=== PATIENT | male | born 1995 | race Caucasian/White ===

== ENCOUNTER 2016-12-10 11:05 | Emergency (ER) | payer OTHER ==
[~2016-12-10] VITALS: Ht 185.4 cm; Wt 66.0 kg
[~2016-12-10 11:05] MED LIST: ACET500C5 PO; ACET500T98 PO; IBUP-1542 PO; IBUP400T22 PO; UDROBDM PO
[2016-12-10 11:09] VITALS: Ht 185.4 cm; Wt 66.0 kg
--- NOTE | 2016-12-10 12:08 | ERD ---
ER Documentation Chief Complaint Date/Time DATE: 12/10/16 TIME: 11:59 Chief Complaint COUGH, MEDIAL CP, SORE THROAT SINCE LAST TUESDAY. COUGHED UP BLOOD THIS AM. HPI Pleasant 21-year-old male patient presents to emergency department today with complaint of nasal congestion, sore throat, cough, and blood-tinged mucus. Patient reports that symptoms started 7 days ago, and he feels worse now than he did at the onset of symptoms. Patient reports maxillary frontal sinus tenderness, ear congestion and popping, intermittent headache, sore throat with intermittent tactile fevers and chills. Patient has tried etdb-tos-ifcdkkl cold and flu medication with temporary relief of symptoms, patient reports that ijgi-czv-ejetctj medication is no longer working. 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 Denies chest pain, shortness of breath, neck pain, or dizziness. Patient reports history of back pain treated with medical marijuana. Patient reports smoking, denies cigarettes. ROS All systems reviewed and are negative except as per history of present illness. Medications Home Meds Active Scripts Guaifenesin-Dextromethorphan* (Robitussin* DM) 100MG/10MG/5ML Syrup, 5 ML PO Q6H Y for COUGH, #120 ML 0 Refills Prov:ANITA COLBY PA-C 01/29/16 Ibuprofen* (Motrin*) 400 Mg Tab, 400 MG PO Q6, #30 TAB 0 Refills Prov:ANITA COLBY PA-C 01/29/16 Acetaminophen* (Tylophen*) 500 Mg Capsule, 1 CAP PO Q6H Y for PAIN AND OR ELEVATED TEMP, #30 CAP 0 Refills Prov:ANITA COLBY PA-C 01/29/16 Guaifenesin-Dextromethorphan* (Robitussin* DM) 100MG/10MG/5ML Syrup, 5 ML PO Q6H Y for COUGH, #240 ML 0 Refills Prov:ANITA COLBY PA-C 11/17/15 Ibuprofen* (Motrin*) 600 Mg Tab, 600 MG PO BID, #30 TAB 0 Refills Prov:ANITA COLBY PA-C 11/17/15 Acetaminophen (Tylenol) 500 Mg Tab, 500 MG PO Q6, #30 TAB 0 Refills Prov:ANITA COLBY PA-C 11/17/15 Allergies Allergies: Coded Allergies: No Known Allergy (Unverified , 10/29/14) PMhx/Soc Medical and Surgical Hx: pt denies Medical Hx, pt denies Surgical Hx History of Surgery: No Anesthesia Reaction: No Hx Neurological Disorder: No Hx Respiratory Disorders: No Hx Cardiac Disorders: No Hx Psychiatric Problems: No Hx Miscellaneous Medical Probl: No Hx Alcohol Use: Yes (OOC) Hx Substance Use: No Hx Tobacco Use: Yes (4 cig a day) Smoking Status: Current every day smoker Physical Exam Vitals Vital Signs Date Time Temp Pulse Resp B/P Pulse Ox O2 Delivery O2 Flow Rate FiO2 12/10/16 11:09 98.4 82 16 135/87 98 Vitals stable, nursing notes reviewed Physical Exam Const: No acute distress, patient sitting with facial mass, intermittently coughing, speech is clear. Head: Eyes: Conjunctiva clear, noninjected, no jaundice, or pallor ENT: Bilateral tympanic membranes are erythemic and nonbulging, auditory canals are clear, nasal mucosa is dry, terminates +2, nasal septum midline with out bleeding points, positive maxillary frontal sinus tenderness to palpation, pharynx mildly erythematous, tonsils not visualized, uvula rises and falls with pronation Neck: Full range of motion..~ No meningismus. No cervical chain nodes Resp: Clear to auscultation bilaterally, no rales wheezes or rhonchi Cardio: Regular rate and rhythm, no murmurs Abd: Soft, non tender, non distended. Normal bowel sounds Skin: Back: Ext: Neur: Awake and alert Psych: Normal Mood and Affect Procedures/MDM Pleasant 21-year-old male patient presents today with worsening of cold symptoms over the last 7 days. Patient has tried byok-txn-hotvrgk cold and flu medication with temporary relief of symptoms. Patient now reports that he is coughing up blood-tinged sputum, headache is intermittent maxillary sinuses, intermittent tactile fever, without nausea or vomiting. Patient denies night sweats, unintentional weight loss, or hemoptysis. Tuberculosis is unlikely. Findings are consistent with sinus infection. I feel the patient is stable for discharge at this time. And will benefit from outpatient antibiotic treatment with albuterol MDI. I have discussed results, examination findings, the treatment plan with the patient prior to discharge, smoking cessation discussed , indications for emergent reevaluation include shortness of breath, hemoptysis , feeling worse than he does now in 48 hours., Headache, side effects of medication were also discussed. All questions were answered. Patient verbalizes understanding and agrees with plan of care. Departure Condition: BLAISE Dubon Dec 10, 2016 12:08
[2016-12-10] MEDS ORDERED: AMOX1TAB10 PO (12:09)
[2016-12-10] MEDS ORDERED: ALBU18HF INHALATION (12:10)
[2016-12-10 12:20] VITALS: BP 125/55; PULSE 55; RESP 20; TEMP 98
== END 2016-12-10 12:22 | disposition home or self-care (01) ==
LOC: FTE 11:05
DX: R05 Cough (principal); R09.81 Nasal congestion; J02.9 Acute pharyngitis, unspecified; R51 Headache; R50.9 Fever, unspecified; F17.210 Nicotine dependence, cigarettes, uncomplicated
CPT/HCPCS: 99284

== ENCOUNTER 2017-02-05 12:08 | Emergency (ER) | payer OTHER ==
[~2017-02-05] VITALS: Wt 68.5 kg
[~2017-02-05 12:08] MED LIST changes: +ALBU18HF INHALATION; +AMOX1TAB10 PO
[2017-02-05] MEDS ORDERED: DIPHENHYDRAMINE 25 MG CAP PO ONE (13:00)
[2017-02-05] MEDS ORDERED: DEXAMETHASONE 10 MG/ML 1 ML INJ IM ONE (13:00)
[2017-02-05] MEDS ORDERED: BEN25 PO (13:10)
[2017-02-05] MEDS ORDERED: EPIN0.3P4 INJ (13:10)
[2017-02-05 13:26] VITALS: PULSE 66; RESP 18
--- NOTE | 2017-02-05 15:56 | ERD ---
ER Documentation Chief Complaint Date/Time DATE: 02/05/17 TIME: 15:51 Chief Complaint SWELLING OF UPPER LIP SINCE THIS MORNING HPI 21-year-old male patient with no significant past medical history presents to the ED complaining of an upper lip swelling that started after drinking [place] orange juice earlier today. States that he was drinking it out of the gallon. Denies any fever, chills, abdominal pain, shortness of breath, wheezing, rashes. Denies taking any ATUL inhibitors. Denies eating any new foods or taking any new meds. Denies any exposure to pets or insects. Denies any new use of soaps or detergents or lotions. ROS All systems reviewed and are negative except as per history of present illness. Medications Home Meds Active Scripts Diphenhydramine Hcl* (Benadryl*) 25 Mg Cap, 25 MG PO Q6, #30 CAP Prov:SOBIA SANCHEZ PA-C 02/05/17 Epinephrine (Epipen 2-Nathanael) 0.3 Mg/0.3 Ml Pen.injctr, 1 EA INJ ONCE Y for ALLERGIC REACTION, #1 EA Prov:SOBIA SANCHEZ PA-C 02/05/17 Albuterol Sulfate* (Ventolin HFA*) 18 Gm Hfa.aer.ad, 2 PUFF INHALATION Q4H, #1 INHALER Prov:DEVEN,BLAISE 12/10/16 Amoxicillin/Potassium Clav (Amox-Clav 875-125 mg Tablet) 875-125 mg Tab, 1 TAB PO BID for 10 Days, #20 TAB Prov:DEVENBLAISE 12/10/16 Guaifenesin-Dextromethorphan* (Robitussin* DM) 100MG/10MG/5ML Syrup, 5 ML PO Q6H Y for COUGH, #120 ML 0 Refills Prov:ANITA COLBY PA-C 01/29/16 Ibuprofen* (Motrin*) 400 Mg Tab, 400 MG PO Q6, #30 TAB 0 Refills Prov:ANITA COLBY PA-C 01/29/16 Acetaminophen* (Tylophen*) 500 Mg Capsule, 1 CAP PO Q6H Y for PAIN AND OR ELEVATED TEMP, #30 CAP 0 Refills Prov:ANITA COLBY PA-C 01/29/16 Guaifenesin-Dextromethorphan* (Robitussin* DM) 100MG/10MG/5ML Syrup, 5 ML PO Q6H Y for COUGH, #240 ML 0 Refills Prov:ANITA COLBY FABI 11/17/15 Ibuprofen* (Motrin*) 600 Mg Tab, 600 MG PO BID, #30 TAB 0 Refills Prov:ANITA COLBY FABI 11/17/15 Acetaminophen (Tylenol) 500 Mg Tab, 500 MG PO Q6, #30 TAB 0 Refills Prov:ANITA COLBY FABI 11/17/15 Allergies Allergies: Coded Allergies: No Known Allergy (Unverified , 10/29/14) PMhx/Soc Medical and Surgical Hx: pt denies Medical Hx, pt denies Surgical Hx History of Surgery: No Anesthesia Reaction: No Hx Neurological Disorder: No Hx Respiratory Disorders: No Hx Cardiac Disorders: No Hx Psychiatric Problems: No Hx Miscellaneous Medical Probl: No Hx Alcohol Use: Yes (OOC) Hx Substance Use: No Hx Tobacco Use: Yes (4 cig a day) Smoking Status: Current every day smoker Physical Exam Vitals Vital Signs Date Time Temp Pulse Resp B/P Pulse Ox O2 Delivery O2 Flow Rate FiO2 02/05/17 13:26 66 18 99 Room Air 02/05/17 12:09 97.5 79 18 111/71 99 Physical Exam Const: Xwl-orv-bvojnxuuy, well-nourished. In no acute distress. Head: Atraumatic, normocephalic Eyes: Normal Conjunctiva without injection. No purulent discharge. PERRL. EOMI ENT: Normal external ear. Ear canal without erythema. Tympanic membrane pearly ritter without effusion or bulging. Nasal canal clear with normal turbinates. Moist oropharynx without tonsillar exudates. Non-erythematous pharynx. Uvula midline. No drooling. No trismus. Upper lip angioedema noted. With no surrounding erythema or edema. No fluctuance. Neck: Full range of motion. No meningismus. No cervical lymphadenopathy. Resp: Clear to auscultation bilaterally. No wheezing, rhonchi, rales, or crackles. No accessory muscle use. No retractions. Cardio: Regular rate and rhythm. No murmurs, rubs or gallops. Abd: Soft, non tender, non distended. Normal bowel sounds. No palpable masses. No rebound tenderness. No guarding. Skin: No petechiae or rashes Back: No midline tenderness. No CVA tenderness. Ext: No cyanosis, or edema. Neur: Awake and alert. Psych: Normal Mood and Affect Results 24 hrs Current Medications Medications (Trade) Dose Ordered Sig/Malina Route PRN Reason Start Time Stop Time Status Last Admin Dose Admin Diphenhydramine HCl (Benadryl) 25 mg ONCE ONCE PO 02/05/17 13:00 02/05/17 13:01 DC 02/05/17 12:54 Dexamethasone (Decadron) 10 mg ONCE ONCE IM 02/05/17 13:00 02/05/17 13:01 DC 02/05/17 12:54 Procedures/MDM This is a 21-year-old male patient with no significant past medical history presents to the ED complaining of upper lip swelling that started this morning. Patient is afebrile and nontoxic-appearing. Patient is speaking in full sentences. Patient is not in respiratory distress. Angioedema is localized. This is likely secondary to an allergic reaction possibly due to [place] orange juice. Patient was strictly instructed to avoid drinking [place] orange juice. He was also instructed to follow-up with his primary care physician for further allergy testing. Patient was given Decadron and Benadryl here in the ED with improvement. There is low suspicion for anaphylaxis, pneumothorax, pleural effusion, pneumonia, cardiopulmonary diseases. Low suspicion for scabies , SJS/TEN, erythema multiforme, sepsis, cellulitis, necrotizing fascitis, gangrene, meningococcemia or other emergent conditions. This case was discussed with my supervising physician Dr. Muse who agreed with the management and discharge plan. Discharge medications: Benadryl, EpiPen Follow up with primary care physician in 1-2 days. Instructed patient to return to the ED sooner for any worsening symptoms. Patient's questions were answered. Patient understood and agreed with discharge plan. Patient discharged stable. Departure Diagnosis: Primary Impression: Lip swelling Condition: Stable Patient Instructions: Allergic Reaction, Other (General), Angioedema Referrals: COMM[facility]ITY CLINICS YOU HAVE RECEIVED A MEDICAL SCREENING EXAM AND THE RESULTS INDICATE THAT YOU DO NOT HAVE A CONDITION THAT REQUIRES URGENT TREATMENT IN THE EMERGENCY DEPARTMENT. FURTHER EVALUATION AND TREATMENT OF YOUR CONDITION CAN WAIT UNTIL YOU ARE SEEN IN YOUR DOCTORS OFFICE WITHIN THE NEXT 1-2 DAYS. IT IS YOUR RESPONSIBILITY TO MAKE AN APPOINTMENT FOR MICHAEL-UP CARE. IF YOU HAVE A PRIMARY DOCTOR --you should call your primary doctor and schedule an appointment IF YOU DO NOT HAVE A PRIMARY DOCTOR YOU CAN CALL OUR PHYSICIAN REFERRAL HOTLINE AT IF YOU CAN NOT AFFORD TO SEE A PHYSICIAN YOU CAN CHOSE FROM THE FOLLOWING [facility] [address] [facility] [address] [facility] [address] [facility] [address] [facility] [address] [facility]. [facility] [address] [facility]. [facility] YOU HAVE RECEIVED A MEDICAL SCREENING EXAM AND THE RESULTS INDICATE THAT YOU DO NOT HAVE A CONDITION THAT REQUIRES URGENT TREATMENT IN THE EMERGENCY DEPARTMENT. FURTHER EVALUATION AND TREATMENT OF YOUR CONDITION CAN WAIT UNTIL YOU ARE SEEN IN YOUR DOCTORS OFFICE WITHIN THE NEXT 1-2 DAYS. IT IS YOUR RESPONSIBILITY TO MAKE AN APPOINTMENT FOR FOLOW-UP CARE. IF YOU HAVE A PRIMARY DOCTOR --you should call your primary doctor and schedule and appointment IF YOU DO NOT HAVE A PRIMARY DOCTOR YOU CAN CALL OUR PHYSICIAN REFERRAL HOTLINE AT . IF YOU CAN NOT AFFORD TO SEE A PHYSICIAN YOU CAN CHOSE FROM THE FOLLOWING [facility] INSTITUTIONS: [facility] [address] [place] [address] [facility] [address] [place] [address] [facility] + [facility] [address] [place] [address] [facility] Additional Instructions: Call your primary care doctor TOMORROW for an appointment during the next 2-3 days for allergy testing.See the doctor sooner or return here if your condition worsens before your appointment time. SOBIA SANCHEZ PA-C Feb 05, 2017 15:55
== END 2017-02-05 13:25 | disposition home or self-care (01) ==
LOC: FTE 12:08
DX: R60.0 Localized edema (principal); F17.210 Nicotine dependence, cigarettes, uncomplicated
CPT/HCPCS: 96372; J1100; Z7502; Z7610

== ENCOUNTER 2018-12-29 10:21 | Emergency (ER) | payer OTHER ==
[~2018-12-29] VITALS: Ht 185.4 cm; Wt 65.1 kg
[~2018-12-29 10:21] MED LIST changes: +BEN25 PO; +EPIN0.3P4 INJ; +GUAI5SYR2 PO; +IBUP-1561 PO; -IBUP400T22 PO; -UDROBDM PO
[2018-12-29 10:27] VITALS: BP 128/73; PULSE 74; RESP 18; Ht 185.4 cm; Wt 65.1 kg
[2018-12-29] MEDS ORDERED: OFLO5DRO46 BOTH EYES (11:56)
[2018-12-29] MEDS ORDERED: TETRACAINE 0.5% 4 ML OPH LEFT EYE ONE (12:00)
[2018-12-29] MEDS ORDERED: FLUORESCEIN STRIP LEFT EYE ONE (12:00)
--- NOTE | 2018-12-29 13:12 | ERD ---
ER Documentation Chief Complaint Chief Complaint pt bib self with c/o left eye reddness x 1 wk, HPI 23-year-old male presenting with redness to his left eye times 1-1/2 weeks. Patient states that his eye gets irritated and blurry. He denies any use of contacts or glasses. Did not know if anything went in his eye. He denies any medications. Denies any medical problems. NKDA. Surgical history denies. Social history smokes 4-5 cigarettes a day. ROS All systems reviewed and are negative except as per history of present illness. Medications Home Meds Active Scripts Ofloxacin* (Ocuflox*) 0.3%-5 Ml Ophth Drops, 1 DROP BOTH EYES QID, #1 BOTTLE Prov:NETO PALAFOX PA-C 12/29/18 Diphenhydramine Hcl* (Benadryl*) 25 Mg Cap, 25 MG PO Q6, #30 CAP Prov:SOBIA SANCHEZ PA-C 02/05/17 Epinephrine (Epipen 2-Nathanael) 0.3 Mg/0.3 Ml Pen.injctr, 1 EA INJ ONCE PRN for ALLERGIC REACTION, #1 EA Prov:SOBIA SANCHEZ PA-C 02/05/17 Albuterol Sulfate* (Ventolin HFA*) 18 Gm Hfa.aer.ad, 2 PUFF INHALATION Q4H, #1 INHALER Prov:DEVEN,BLAISE 12/10/16 Amoxicillin/Potassium Clav (Amox-Clav 875-125 mg Tablet) 875-125 mg Tab, 1 TAB PO BID for 10 Days, #20 TAB Prov:DEVENBLAISE 12/10/16 Guaifenesin-Dextromethorphan* (Robitussin* DM) 100MG/10MG/5ML Syrup, 5 ML PO Q6H PRN for COUGH, #120 ML 0 Refills Prov:ANITA COLBY PA-C 01/29/16 Ibuprofen* (Motrin*) 400 Mg Tab, 400 MG PO Q6, #30 TAB 0 Refills Prov:ANITA COLBY PA-C 01/29/16 Acetaminophen* (Tylophen*) 500 Mg Capsule, 1 CAP PO Q6H PRN for PAIN AND OR ELEVATED TEMP, #30 CAP 0 Refills Prov:ANITA COLBY PA-C 01/29/16 Guaifenesin-Dextromethorphan* (Robitussin* DM) 100MG/10MG/5ML Syrup, 5 ML PO Q6H PRN for COUGH, #240 ML 0 Refills Prov:ANITA COLBY FABI 11/17/15 Ibuprofen* (Motrin*) 600 Mg Tab, 600 MG PO BID, #30 TAB 0 Refills Prov:ANITA COLBY FABI 11/17/15 Acetaminophen (Tylenol) 500 Mg Tab, 500 MG PO Q6, #30 TAB 0 Refills Prov:ANITA COLBY FABI 11/17/15 Allergies Allergies: Coded Allergies: No Known Allergy (Unverified , 10/29/14) PMhx/Soc History of Surgery: No Anesthesia Reaction: No Hx Neurological Disorder: No Hx Respiratory Disorders: No Hx Cardiac Disorders: No Hx Psychiatric Problems: No Hx Miscellaneous Medical Probl: No Hx Alcohol Use: Yes (OOC) Hx Substance Use: No Hx Tobacco Use: Yes (4 cig a day) Smoking Status: Never smoker FmHx Family History: No diabetes, No coronary disease, No other Physical Exam Vitals Vital Signs Date Temp Pulse Resp B/P (MAP) Pulse Ox O2 O2 Flow FiO2 Time Delivery Rate 12/29/18 97.2 74 18 128/73 98 10:27 (91) Physical Exam GENERAL: The patient is well-appearing, well-nourished, in no acute distress HEENT: Atraumatic. Conjunctivae are pink. Erythema injection noted of the left eye. Pupils equal round and reactive to light. Ocular movements intact NECK: C-spine is soft and supple. There is no meningismus. There is no cervical lymphadenopathy. . CHEST: Clear to auscultation bilaterally. There are no rales, wheezes or rhonchi. HEART: Regular rate and rhythm. No murmurs, clicks, rubs or gallops. Results 24 hrs Current Medications Medications Dose Sig/Malina Start Time Status Last (Trade) Ordered Route PRN Stop Time Admin Dose Reason Admin Tetracaine 1 drop ONCE ONCE 12/29/18 DC HCl LEFT EYE 12:00 (Tetracaine 12/29/18 12:01 0.5% Steri-Unit Kelsy) Fluorescein 1 strip ONCE ONCE 12/29/18 DC Sodium LEFT EYE 12:00 ([id number]-[id number] 12/29/18 12:01 p) Procedures/MDM ER course: Fluorescein and tetracaine stain applied to left eye. Small corneal abrasion noted. No foreign body. M: 23-year-old male presenting with corneal abrasion. Patient is discharged with antibiotic drops. I have low suspicion for globe rupture. Patient is d ischarged with stricter precautions. Patient is told if symptoms change or worsen to return the ER immediately. All questions answered at discharge Departure Diagnosis: Primary Impression: Corneal abrasion Condition: Stable Patient Instructions: Corneal Abrasion Referrals: [facility] YOU HAVE RECEIVED A MEDICAL SCREENING EXAM AND THE RESULTS INDICATE THAT YOU DO NOT HAVE A CONDITION THAT REQUIRES URGENT TREATMENT IN THE EMERGENCY DEPARTMENT. FURTHER EVALUATION AND TREATMENT OF YOUR CONDITION CAN WAIT UNTIL YOU ARE SEEN IN YOUR DOCTORS OFFICE WITHIN THE NEXT 1-2 DAYS. IT IS YOUR RESPONSIBILITY TO MAKE AN APPOINTMENT FOR FOLOW-UP CARE. IF YOU HAVE A PRIMARY DOCTOR --you should call your primary doctor and schedule an appointment IF YOU DO NOT HAVE A PRIMARY DOCTOR YOU CAN CALL OUR PHYSICIAN REFERRAL HOTLINE AT IF YOU CAN NOT AFFORD TO SEE A PHYSICIAN YOU CAN CHOSE FROM THE FOLLOWING [facility] [address] [facility]. [facility] [address] [facility] [facility] [address] [facility] [address] [facility]. [facility] [address] [facility]. [facility]. [address] Additional Instructions: FOLLOW UP WITH YOUR PRIMARY CARE PHYSICIAN TOMORROW.Return to this facility if you are not improving as expected. NETO PALAFOX PA-C Dec 29, 2018 13:12
== END 2018-12-29 16:42 | disposition home or self-care (01) ==
LOC: FTE 10:21
DX: S05.02XA Injury of conjunctiva and corneal abrasion without foreign body, left eye, initial encounter (principal); F17.210 Nicotine dependence, cigarettes, uncomplicated; X58.XXXA Exposure to other specified factors, initial encounter; Y92.9 Unspecified place or not applicable
CPT/HCPCS: Z7502; Z7610; 99283

== ENCOUNTER 2019-01-01 06:37 | Emergency (ER) | payer OTHER ==
[~2019-01-01] VITALS: Ht 177.8 cm; Wt 65.8 kg
[~2019-01-01 06:37] MED LIST changes: +OFLO5DRO46 BOTH EYES
[2019-01-01 06:46] VITALS: BP 134/80; PULSE 82; RESP 18; Ht 177.8 cm; Wt 65.8 kg
[2019-01-01] MEDS ORDERED: TETRACAINE 0.5% 4 ML OPH LEFT EYE ONE (07:00)
--- NOTE | 2019-01-01 08:51 | ERD ---
ER Documentation Chief Complaint Chief Complaint left eye painful red and watering, abx since tuesday HPI 23 yr old male complaining of redness and irritation to left eye. Patient was seen 4 days ago and given antibiotics for corneal abrasion. He states his pain is persisted. This pain is been going on for 2 weeks. He describes blurry vision to his left eye. Denies any foreign body. Denies contacts or glasses use. Denies medical problems. NKDA. Surgical history denies. Social history smokes cigarettes ROS All systems reviewed and are negative except as per history of present illness. Medications Home Meds Active Scripts Ofloxacin* (Ocuflox*) 0.3%-5 Ml Ophth Drops, 1 DROP BOTH EYES QID, #1 BOTTLE Prov:NETO PALAFOX PA-C 12/29/18 Diphenhydramine Hcl* (Benadryl*) 25 Mg Cap, 25 MG PO Q6, #30 CAP Prov:SOBIA SANCHEZ PA-C 02/05/17 Epinephrine (Epipen 2-Nathanael) 0.3 Mg/0.3 Ml Pen.injctr, 1 EA INJ ONCE PRN for ALLERGIC REACTION, #1 EA Prov:SOBIA SANCHEZ PA-C 02/05/17 Albuterol Sulfate* (Ventolin HFA*) 18 Gm Hfa.aer.ad, 2 PUFF INHALATION Q4H, #1 INHALER Prov:DEVEN,BLAISE 12/10/16 Amoxicillin/Potassium Clav (Amox-Clav 875-125 mg Tablet) 875-125 mg Tab, 1 TAB PO BID for 10 Days, #20 TAB Prov:DEVENBLAISE 12/10/16 Guaifenesin-Dextromethorphan* (Robitussin* DM) 100MG/10MG/5ML Syrup, 5 ML PO Q6H PRN for COUGH, #120 ML 0 Refills Prov:ANITA COLBY PA-C 01/29/16 Ibuprofen* (Motrin*) 400 Mg Tab, 400 MG PO Q6, #30 TAB 0 Refills Prov:ANITA COLBY PA-C 01/29/16 Acetaminophen* (Tylophen*) 500 Mg Capsule, 1 CAP PO Q6H PRN for PAIN AND OR ELEVATED TEMP, #30 CAP 0 Refills Prov:ANITA COLBY PA-C 01/29/16 Guaifenesin-Dextromethorphan* (Robitussin* DM) 100MG/10MG/5ML Syrup, 5 ML PO Q6H PRN for COUGH, #240 ML 0 Refills Prov:ANITA COLBY FABI 11/17/15 Ibuprofen* (Motrin*) 600 Mg Tab, 600 MG PO BID, #30 TAB 0 Refills Prov:ANITA COLBY FABI 11/17/15 Acetaminophen (Tylenol) 500 Mg Tab, 500 MG PO Q6, #30 TAB 0 Refills Prov:ANITA COLBY FABI 11/17/15 Allergies Allergies: Coded Allergies: No Known Allergy (Unverified , 10/29/14) PMhx/Soc History of Surgery: No Anesthesia Reaction: No Hx Neurological Disorder: No Hx Respiratory Disorders: No Hx Cardiac Disorders: No Hx Psychiatric Problems: No Hx Miscellaneous Medical Probl: No Hx Alcohol Use: No Hx Substance Use: No Hx Tobacco Use: No Smoking Status: Never smoker FmHx Family History: No diabetes, No coronary disease, No other Physical Exam Vitals Vital Signs Date Temp Pulse Resp B/P (MAP) Pulse Ox O2 O2 Flow FiO2 Time Delivery Rate 01/01/19 97.0 82 18 134/80 98 06:46 (98) Physical Exam GENERAL: The patient is well-appearing, well-nourished, in no acute distress HEENT: Atraumatic. Conjunctivae injected. Pupils equal, round, and reactive to light. There is no scleral icterus. Tympanic membranes clear bilaterally. Oropharynx clear. NECK: C-spine is soft and supple. There is no meningismus. There is no cervical lymphadenopathy. CHEST: Clear to auscultation bilaterally. There are no rales, wheezes or rhonchi. HEART: Regular rate and rhythm. No murmurs, clicks, rubs or gallops. Results 24 hrs Current Medications Medications Dose Sig/Malina Start Time Status Last (Trade) Ordered Route PRN Stop Time Admin Dose Reason Admin Tetracaine 1 drop ONCE ONCE 01/01/19 DC HCl LEFT EYE 07:00 (Tetracaine 01/01/19 07:01 0.5% Steri-Unit Kelsy) Procedures/MDM ER course: Surya-Pen pressures checked and consistent reading of 13mmhg. MDM: 23 yr old male complaining of redness to left eye. Patient is required to follow-up with extension service specialist in charge today. Pupils appear to be equal round and reactive. Ocular movements are intact and pressures are stable. Given patient has had persistent irritation with no resolution with antibiotic drops patient is recommended to immediately follow-up with extension service specialist in charge. Patient understood and will go to extension service specialist in charge right now. All questions answered at discharge Departure Diagnosis: Primary Impression: Pain in eye Condition: Stable Patient Instructions: Understanding Red Eye: Causes Referrals: [facility] Hours: Mon - Fri 9:00 AM - 5:00 PM Additional Instructions: FOLLOW UP WITH YOUR PRIMARY CARE PHYSICIAN TOMORROW.Return to this facility if you are not improving as expected. NETO PALAFOX PA-C Jan 01, 2019 08:51
== END 2019-01-01 07:19 | disposition home or self-care (01) ==
LOC: FTE 06:37
DX: H57.12 Ocular pain, left eye (principal); F17.210 Nicotine dependence, cigarettes, uncomplicated
CPT/HCPCS: Z7502; Z7610; 99282